=== PATIENT | male | born 1935 | race African-American/Black ===

== ENCOUNTER 2024-10-15 08:12 | Emergency (ER) | payer MEDICARE, MEDICAID ==
[~2024-10-15] VITALS: Ht 177.8 cm; Wt 82.0 kg
[~2024-10-15 08:12] MED LIST: AMLO10TA80 PO; FERR325T6 PO; FLUT1BLS12 IH; FURO-151 PO; GABA-1180 PO; GLIP10TA17; HYDR25TA78 PO; POTA-202 PO; TERA10CA4 PO; TRAZ-251 PO
[2024-10-15 09:25] LABS: BASOPHILS % 0.6 % (0.0-2.0); DIFFERENTIAL COMMENT 0; HEMATOCRIT. 26.1 % (42.0-52.0); HEMOGLOBIN. 8.2 g/dL (14.0-18.0); LYMPHOCYTES % 10.1 % (20.0-50.0); MEAN CORPUSCULAR HGB CONC 31.3 g/dL (31.0-37.0); MEAN CORPUSCULAR VOLUME 79.9 fL (80.0-94.0); MONOCYTES % 7.9 % (2.0-8.0); NEUTROPHILS % 80.4 % (40.0-76.0); PLATELET 261 x1000/uL (130-400); RED BLOOD CELL COUNT 3.27 mill/uL (4.7-6.1); RED CELL DISTRIBUTION WIDTH 18.3 % (11.6-14.6); WHITE BLOOD COUNT 9.5 x1000/uL (4.5-11.0)
[2024-10-15 09:32] LABS: CARBON DIOXIDE 23 mEq/L (21-32); CHLORIDE 105 mEq/L (98-107); SODIUM 141 mEq/L (136-145)
[2024-10-15 09:38] LABS: GLUCOSE 144 mg/dL (70-105)
[2024-10-15 09:40] LABS: ALANINE AMINOTRANSFERASE 15 IU/L (10-49); ALBUMIN 3.7 g/dL (3.2-4.8); ASPARTATE AMINOTRANSFERASE 46 IU/L (<34); BILIRUBIN DIRECT 0.2 mg/dL (<=3.0); BILIRUBIN TOTAL 0.5 mg/dL (0.1-1.0); INR 1.2; PARTIAL THROMBOPLASTIN TIME 25.6 sec (23.4-31.0); PROTEIN TOTAL 6.6 g/dL (6.0-8.3); PROTHROMBIN TIME 12.4 sec (9.6-11.0); TROPONIN I HIGH SENSITIVITY 24 ng/L (3.0-53)
[2024-10-15 10:04] LABS: CREATINE KINASE 245 IU/L (46-171); UREA NITROGEN BLOOD 46 mg/dL (9-23)
[2024-10-15 10:10] LABS: POTASSIUM 7.7 mEq/L (3.5-5.1)
[2024-10-15 10:12] LABS: CREATININE 2.8 mg/dL (0.6-1.3)
[2024-10-15 10:56] LABS: CALCIUM 8.9 mg/dL (8.7-10.4)
[2024-10-15 11:01] LABS: CREATININE 2.9 mg/dL (0.6-1.3)
[2024-10-15] MEDS: INSULIN REGULAR (HUMULIN R) 1000UNITS/10ML VIAL IV ONE (11:15)
[2024-10-15] MEDS ORDERED: CALCIUM GLUCONATE 1,000 MG in DEXT 5% WATER 100 ML IV ONE (11:15)
[2024-10-15] MEDS: SODIUM BICARBONATE 8.4% 50MEQ/50ML SYR IV ONE (11:15)
[2024-10-15] MEDS: DEXTROSE 50% WATER 50ML SYRINGE IV ONE (11:15)
[2024-10-15] MEDS: CALCIUM GLUCONATE 1GM PREMIX 50 ML IV ONE (11:30)
[2024-10-15] MEDS: SODIUM CHLORIDE 0.9% 1,000 ML IV ONE (12:45)
[2024-10-15 12:52] VITALS: PULSE 65; RESP 22; O2SAT 92
[2024-10-15] MEDS: ALBUTEROL (0.083%) 2.5MG/3ML NEB HHN SCH (12:52)
[2024-10-15] MEDS ORDERED: CLONIDINE 0.1MG TABLET PO PRN (13:00)
[2024-10-15] MEDS ORDERED: DOCUSATE SODIUM 100MG CAPSULE PO PRN (13:00)
[2024-10-15] MEDS ORDERED: ENOXAPARIN 40MG/0.4ML SYR SUBCUT SCH (13:00)
[2024-10-15] MEDS: FUROSEMIDE 40MG TABLET PO SCH (13:00)
[2024-10-15] MEDS ORDERED: IPRATROPIUM/ALBUTEROL 0.5-3(2.5)MG/3ML NEB HHN PRN (13:00)
[2024-10-15] MEDS ORDERED: ACETAMINOPHEN 325MG TABLET PO PRN ×2 (13:00)
[2024-10-15] MEDS ORDERED: SODIUM ZIRCONIUM CYCLOSILICATE 10GM/PACKET PO ONE (13:00)
[2024-10-15 13:04] VITALS: PULSE 65; RESP 22; O2SAT 91
[2024-10-15 14:43] LABS: POTASSIUM 4.5 mEq/L (3.5-5.1)
[2024-10-15 14:44] LABS: CALCIUM 9.2 mg/dL (8.7-10.4)
[2024-10-15 14:48] LABS: CREATININE 2.8 mg/dL (0.6-1.3)
[2024-10-15] MEDS: ENOXAPARIN 30MG/0.3ML SYR SUBCUT SCH (14:58)
[2024-10-15] MEDS: SODIUM ZIRCONIUM CYCLOSILICATE 10GM/PACKET PO SCH (14:58)
[2024-10-15 16:51] VITALS: BP 130/49; PULSE 67; RESP 17; TEMP 36.7; O2SAT 93
[2024-10-15] MEDS ORDERED: GABAPENTIN 300MG CAPSULE PO SCH (21:00)
== END 2024-10-15 16:52 | disposition short-term general hospital (02) ==
LOC: ER 08:28 → EDBEDREQ 12:49 → EDBEDREQTM 12:49 → CANBEDREQ 12:50 → ER 16:52
DX: S09.90XA Unspecified injury of head, initial encounter (principal); D64.9 Anemia, unspecified; J44.9 Chronic obstructive pulmonary disease, unspecified; E11.9 Type 2 diabetes mellitus without complications; I10 Essential (primary) hypertension; N28.9 Disorder of kidney and ureter, unspecified; Z88.8 Allergy status to other drugs, medicaments and biological substances; Z79.899 Other long term (current) drug therapy; W01.0XXA Fall on same level from slipping, tripping and stumbling without subsequent striking against object, initial encounter; X58.XXXA Exposure to other specified factors, initial encounter; Y93.89 Activity, other specified; Y92.89 Other specified places as the place of occurrence of the external cause; Y99.8 Other external cause status
CPT/HCPCS: 80076; 80048; 82550; 83880; 85025; 85610; 85730; 86850; 86900; 86901; 84484; 36415; 71045; 72170; 70450; 94640; 93005; 94070; 96361; 96365; 96372; 96375; 99291; J0610; J1650; J1815; J3490; J7030; J7060

== ENCOUNTER 2024-12-18 16:37 | Inpatient (IN) | payer MEDICARE, MEDICAID ==
[~2024-12-18] VITALS: Ht 172.7 cm; Wt 76.7 kg
[2024-12-18 17:21] LABS: BG BASE EXCESS -0.1 mmol/L (-2.0-3.0); BG DEOXYHEMOGLOBIN 11.7 % (0.0-5.0); BG FRACTION INSPIRED OXYGEN 28; BG HCO3 ACT 22.3 mmol/L (21.0-28.0); BG METHEMOGLOBIN 0.1 % (0.5-1.5); BG OXYGEN SATURATION 88.2 % (94.0-98.0); BG OXYHEMOGLOBIN 87.2 % (94.0-98.0); BG PCO2 29.2 mmHg (35.0-48.0); BG PO2 52.1 mmHg (83.0-108.0); BG SAMPLE SITE RIGHT BRACHIAL; BG TOTAL HEMOGLOBIN 11.8 g/dL (13.5-17.5); BG VENT MODE NASAL CANNULA
[2024-12-18 17:29] VITALS: PULSE 74; RESP 19; O2SAT 95
[2024-12-18] MEDS: ALBUTEROL (0.083%) 2.5MG/3ML NEB HHN STA (17:29)
[2024-12-18] MEDS: IPRATROPIUM BROMIDE (0.02%) 0.5MG/2.5ML NEB HHN STA (17:29)
[2024-12-18 18:00] LABS: ADD RBC MORPHOLOGY YES; BASOPHILS % 0.6 % (0.0-2.0); DIFFERENTIAL COMMENT 1; EOSINOPHILS % 7.2 % (0.0-5.0); HEMATOCRIT. 34.6 % (42.0-52.0); HEMOGLOBIN. 10.9 g/dL (14.0-18.0); LYMPHOCYTES % 18.2 % (20.0-50.0); MEAN CORPUSCULAR HEMOGLOBIN 26.5 pg (28.0-32.0); MEAN CORPUSCULAR HGB CONC 31.5 g/dL (31.0-37.0); MEAN CORPUSCULAR VOLUME 84.3 fL (80.0-94.0); MEAN PLATELET VOLUME 7.4 fl (7.4-10.4); PLATELET 222 x1000/uL (130-400); RED CELL DISTRIBUTION WIDTH 23.6 % (11.6-14.6); WHITE BLOOD COUNT 4.9 x1000/uL (4.5-11.0)
[2024-12-18 18:10] LABS: CARBON DIOXIDE 24 mEq/L (21-32); CHLORIDE 107 mEq/L (98-107); POTASSIUM 4.6 mEq/L (3.5-5.1); SODIUM 140 mEq/L (136-145)
[2024-12-18 18:11] LABS: CALCIUM 9.4 mg/dL (8.7-10.4); INR 1.1; PARTIAL THROMBOPLASTIN TIME 30.8 sec (23.4-31.0)
[2024-12-18] MEDS: FUROSEMIDE 40MG/4ML VIAL IV ONE (18:11)
[2024-12-18] MEDS: CEFTRIAXONE 1GM/50ML 50 ML IV ONE (18:11)
[2024-12-18 18:16] LABS: CREATININE 1.5 mg/dL (0.6-1.3); ETHANOL BLOOD < 10 mg/dL (<10); GLUCOSE 86 mg/dL (70-105); TROPONIN I HIGH SENSITIVITY 27 ng/L (3.0-53); UREA NITROGEN BLOOD 19 mg/dL (9-23)
[2024-12-18 18:17] LABS: ALANINE AMINOTRANSFERASE 10 IU/L (10-49); PLATELET ESTIMATE NORMAL
[2024-12-18 18:18] LABS: ALBUMIN 4.1 g/dL (3.2-4.8); ASPARTATE AMINOTRANSFERASE 18 IU/L (<34); BILIRUBIN DIRECT 0.2 mg/dL (<=3.0); BILIRUBIN TOTAL 0.5 mg/dL (0.1-1.0); MICROCYTOSIS 2+; PROTEIN TOTAL 6.9 g/dL (6.0-8.3)
[2024-12-18] MEDS: AZITHROMYCIN 500MG/250ML 250 ML IV SCH (18:57)
[2024-12-18 19:20] LABS: CLARITY URINE CLEAR (CLEAR); COLOR URINE YELLOW (YELLOW); GLUCOSE URINE NEGATIVE (NEGATIVE); KETONES URINE NEGATIVE (NEGATIVE); LEUKOCYTE ESTERASE URINE TRACE (NEGATIVE); NITRITE URINE NEGATIVE (NEGATIVE); OCCULT BLOOD URINE NEGATIVE (NEGATIVE); PROTEIN URINE NEGATIVE (NEGATIVE); SPECIFIC GRAVITY URINE 1.012 (1.005-1.030)
[2024-12-18 19:34] LABS: *AMPHETAMINES SCREEN URINE NEGATIVE (NEGATIVE); *BARBITURATES SCREEN URINE NEGATIVE (NEGATIVE); *BENZODIAZEPINES SCREEN URINE NEGATIVE (NEGATIVE); *COCAINE SCREEN URINE NEGATIVE (NEGATIVE); CANNABINOID URINE SCREEN NEGATIVE (NEGATIVE); ECSTASY MDMA SCREEN URINE NEGATIVE (NEGATIVE); METHADONE URINE SCREEN NEGATIVE (NEGATIVE); OPIATES URINE SCREEN NEGATIVE (NEGATIVE); PHENCYCLIDINE URINE SCREEN NEGATIVE (NEGATIVE)
[2024-12-18 19:44] LABS: BACTERIA URINE 1+; RBC URINE 0-2 /hpf (0-2); SQUAMOUS EPITHELIAL CELL URINE 1+ /lpf (RARE/1+); TRICHOMONAS URINE 1+
[2024-12-18] MEDS ORDERED: ONDANSETRON HCL 4MG/2ML INJ IV PRN (19:45)
[2024-12-18] MEDS ORDERED: IPRATROPIUM/ALBUTEROL 0.5-3(2.5)MG/3ML NEB NEB PRN (19:45)
[2024-12-18] MEDS ORDERED: GUAIFENESIN 200MG/10ML SUGAR FREE UDC PO PRN (19:45)
[2024-12-18] MEDS ORDERED: CLONIDINE 0.1MG TABLET PO PRN (19:45)
[2024-12-18] MEDS ORDERED: MAGNESIUM/ALUMINUM HYDROXIDE/SIMETHICONE 30ML UDC PO PRN (19:45)
[2024-12-18 21:15] VITALS: BP 139/59; PULSE 63; RESP 18; TEMP 36.6
[2024-12-18] MEDS: METRONIDAZOLE 500MG TABLET PO SCH (22:11)
[2024-12-18] MEDS: ENOXAPARIN 40MG/0.4ML SYR SUBCUT SCH (22:12)
[2024-12-18] MEDS: METHYLPREDNISOLONE SOD SUCC 40MG/ML (ACT-O-VIAL) IV SCH (22:12)
[2024-12-19] VITALS (8 sets, daily range): BP systolic 118–152; BP diastolic 42–85; PULSE 64–66; RESP 18–20; TEMP 35.8–36.8; O2SAT 92–98
[2024-12-19 06:30] LABS: BASOPHILS % 0.5 % (0.0-2.0); EOSINOPHILS % 0.2 % (0.0-5.0); HEMATOCRIT. 33.9 % (42.0-52.0); HEMOGLOBIN. 10.9 g/dL (14.0-18.0); LYMPHOCYTES % 10.4 % (20.0-50.0); MEAN CORPUSCULAR HEMOGLOBIN 26.5 pg (28.0-32.0); MEAN CORPUSCULAR VOLUME 82.7 fL (80.0-94.0); MEAN PLATELET VOLUME 7.9 fl (7.4-10.4); MONOCYTES % 2.8 % (2.0-8.0); NEUTROPHILS % 86.1 % (40.0-76.0); PLATELET 235 x1000/uL (130-400); RED CELL DISTRIBUTION WIDTH 23.3 % (11.6-14.6); WHITE BLOOD COUNT 3.6 x1000/uL (4.5-11.0)
[2024-12-19 06:37] LABS: DIFFERENTIAL COMMENT 1
[2024-12-19 06:43] LABS: CALCIUM 9.3 mg/dL (8.7-10.4); POTASSIUM 4.2 mEq/L (3.5-5.1)
[2024-12-19 06:49] LABS: CREATININE 1.5 mg/dL (0.6-1.3)
[2024-12-19] MEDS: FUROSEMIDE 40MG/4ML VIAL IVP SCH (17:21)
[2024-12-19] MEDS ORDERED: CEFTRIAXONE 1GM/50ML 50 ML IV SCH ×2 (20:00)
[2024-12-19] MEDS ORDERED: AZITHROMYCIN 500MG/250ML 250 ML IV SCH ×2 (21:00)
== END 2024-12-19 21:42 | disposition short-term general hospital (02) | DRG 291 ==
LOC: ER 16:37 → EDBEDREQ 18:49 → ENRESERV 20:05 → 5WST 21:11
PROVIDERS: ADMIT Internal Medicine; ATTEND Internal Medicine
DX: I11.0 Hypertensive heart disease with heart failure (principal); I50.21 Acute systolic (congestive) heart failure; J96.01 Acute respiratory failure with hypoxia; M79.605 Pain in left leg; J44.9 Chronic obstructive pulmonary disease, unspecified; S80.822A Blister (nonthermal), left lower leg, initial encounter; E11.9 Type 2 diabetes mellitus without complications; M79.604 Pain in right leg; S81.812A Laceration without foreign body, left lower leg, initial encounter; X58.XXXA Exposure to other specified factors, initial encounter; Z79.899 Other long term (current) drug therapy; Z99.81 Dependence on supplemental oxygen; Z88.8 Allergy status to other drugs, medicaments and biological substances; Z95.0 Presence of cardiac pacemaker; Y93.89 Activity, other specified; Y92.89 Other specified places as the place of occurrence of the external cause; Y99.8 Other external cause status
CPT/HCPCS: 36415; 36600; 71045; 80048; 80076; 80305; 80320; 81003; 82375; 82805; 83880; 84484; 85025; 93005; 93970; 94070; 94640; 94664; 98960; 99291; J0456; J0696; J1650; J1940; J2919; G0480